=== PATIENT | female | born 1965 | race Caucasian/White ===

== ENCOUNTER 2018-01-03 19:40 | Emergency (ER) | payer OTHER | END 2018-01-03 20:45 | disposition home or self-care (01) | LOC: MADERS 19:40 | DX: S16.1XXA Strain of muscle, fascia and tendon at neck level, initial encounter (principal); E78.5 Hyperlipidemia, unspecified; F41.9 Anxiety disorder, unspecified; F32.9 Major depressive disorder, single episode, unspecified; V89.2XXA Person injured in unspecified motor-vehicle accident, traffic, initial encounter | CPT/HCPCS: 99283 ==